=== PATIENT | female | born 1940 | race Caucasian/White ===

== ENCOUNTER 2019-09-05 07:07 | Outpatient (CLI) | payer OTHER | END 2019-09-05 07:18 | disposition home or self-care (01) | LOC: MAMO-SONO 07:07 | DX: Z12.31 Encounter for screening mammogram for malignant neoplasm of breast (principal); Z87.898 Personal history of other specified conditions ==

== ENCOUNTER 2021-07-01 08:01 | Outpatient (CLI) | payer OTHER | END 2021-07-01 08:58 | disposition home or self-care (01) | LOC: RAD 08:01 → MRI 08:15 → RAD 08:58 | PROVIDERS: ATTEND Orthopaedic Surgery | DX: M17.0 Bilateral primary osteoarthritis of knee (principal); M25.561 Pain in right knee; M25.562 Pain in left knee | CPT/HCPCS: 73721 ==